=== PATIENT | male | born 1965 | race Two or more races ===

== ENCOUNTER 2019-12-10 07:21 | Emergency (ER) | payer SELFPAY ==
[2019-12-10] MEDS ORDERED: DIAZEPAM 5 MG TABLET PO ONE (09:24)
[2019-12-10] MEDS ORDERED: KETOROLAC TROMETHAMINE INJ/PF 30 MG/1 ML SDV IV ONE (09:24)
--- NOTE | 2019-12-10 10:03 | ER Document Report ---
Entered by MARIA TERESA MALLORY SCRIBE 12/10/19 0942 Acting as scribe for:PAUL MCMAHAN DO ED Neck/Back Problem - General Chief Complaint: Back Pain Stated Complaint: BACK PAIN Time Seen by Provider: 12/10/19 08:52 Primary Care Provider: JACKIE OROPEZA MD [Primary Care Provider] - Follow up as needed Mode of Arrival: Medic Information source: Patient Notes: This 54 year old male patient presents to the emergency department today with complaints of low back pain. 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 Patient states that the pain seems to radiate from his low back up to his mid back and neck. Patient denies any urinary incontinence, fevers, or radiation of pain down his legs. TRAVEL OUTSIDE OF THE [place] IN LAST 30 DAYS: No - Related Data Allergies/Adverse Reactions: No Known Allergies Allergy (Verified 12/10/19 07:42) Past Medical History - General Information source: Patient - Social History Smoking Status: Never Smoker Cigarette use (# per day): No Chew tobacco use (# tins/day): No Frequency of alcohol use: None Drug Abuse: None Lives with: Family Family History: Reviewed & Not Pertinent Patient has suicidal ideation: No Patient has homicidal ideation: No Pulmonary Medical History: Reports: Hx Asthma - seasonal Surgical Hx: Negative - Immunizations Hx Diphtheria, Pertussis, Tetanus Vaccination: Yes Review of Systems - Review of Systems Constitutional: No symptoms reported EENT: No symptoms reported Cardiovascular: No symptoms reported Respiratory: No symptoms reported Gastrointestinal: No symptoms reported Genitourinary: No symptoms reported Male Genitourinary: No symptoms reported Musculoskeletal: See HPI, Back pain Skin: No symptoms reported Hematologic/Lymphatic: No symptoms reported Neurological/Psychological: No symptoms reported -: Yes All other systems reviewed and negative Physical Exam - Vital signs Vitals: Temp Pulse Resp BP Pulse Ox 97.7 F 63 14 108/69 99 12/10/19 07:25 12/10/19 07:25 12/10/19 07:25 12/10/19 07:25 12/10/19 07:25 - Notes Notes: Physical Exam: General: Alert, appears uncomfortable. HEENT: Normocephalic. Atraumatic. PERRL. Extraocular movements intact. Orophary nx clear. Neck: Supple. Non-tender. Respiratory: No respiratory distress. Clear and equal breath sounds bilaterally. Cardiovascular: Regular rate and rhythm. Abdominal: Normal Inspection. Non-tender. No distension. Normal Bowel Sounds. Back: No gross abnormalities. Extremities: Moves all four extremities. Upper extremities: Normal inspection. Normal ROM. Lower extremities: Normal inspection. No edema. Normal ROM. Neurological: Normal cognition. AAOx4. Normal speech. Psychological: Normal affect. Normal Mood. Skin: Warm. Dry. Normal color. 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 No fever or IVDA or midline pain on exam. Better after treatment but pain still present. Discussed outpt treatment and he expressed understanding. Thankfully a nonsmoker. Expect improvement slowly as discussed and warning signs/ reasons to return here discussed. - Vital Signs Vital signs: Temp Pulse Resp BP Pulse Ox 98.1 F 81 14 122/76 99 12/10/19 11:01 12/10/19 11:01 12/10/19 11:01 12/10/19 11:01 12/10/19 11:01 Discharge - Discharge Clinical Impression: Lumbar paraspinal muscle spasm Backache Qualifiers: Back pain location: low back pain Back pain laterality: bilateral Sciatica presence: without sciatica Condition: Good Disposition: HOME, SELF-CARE Instructions: Ice Packs ([facility]), Low Back Pain ([facility]), Muscle Strain ([facility]), Oral Narcotic Medication ([facility]), Pain Medication Injection ([facility]), Warm Packs ([facility]) Additional Instructions: Call your doctor today for follow up this week. Use ice and alternate ice and heat as discussed. Return here for pain not improved with medicine, weakness, fever or other concerns. Take your medicine as directed. Prescriptions: Ibuprofen [Motrin 600 mg Tablet] 600 mg PO TID #30 tablet Diazepam [Valium 5 mg Tablet] 5 mg PO TID #15 tablet Referrals: JACKIE OROPEZA MD [Primary Care Provider] - Follow up as needed I personally performed the services described in the documentation, reviewed and edited the documentation which was dictated to the scribe in my presence, and it accurately records my words and actions.
--- NOTE | 2019-12-10 10:27 | RADIOLOGY REPORT (SQ) ---
EXAM DESCRIPTION: CT LUMBAR SPINE WITHOUT COMPLETED DATE/TIME: 12/10/2019 10:06 am REASON FOR STUDY: back pain COMPARISON: None. TECHNIQUE: Axial images acquired through the lumbar spine without intravenous contrast. Images revi ewed with lung, soft tissue and bone windows. Reconstructed coronal and sagittal MPR images reviewed . All images stored on PACS. All CT scanners at this facility use dose modulation, iterative reconstruction, and/or weight based d osing when appropriate to reduce radiation dose to as low as reasonably achievable (ALARA). [facility]: Dose Right [facility]: CareDose [facility]: Dose Right [facility]: Teradose 4D [facility]: [facility] ICU Care RADIATION DOSE: mGy. LIMITATIONS: None. FINDINGS: Alignment is anatomic. Schmorl's node formation superior endplate L2. No obvious acute d isc herniation. Facet arthropathy lower lumbar spine. There are 2 sclerotic lesions in the right ilium. No paraspinal mass or hematoma. IMPRESSION: Facet arthropathy. No acute findings. Sclerotic lesions right ilium could be bone roz nds, however correlation with bone scan is recommended. TECHNICAL DOCUMENTATION: JOB ID: [id number] Quality ID # [id number]: Final reports with documentation of one or more dose reduction techniques (e.g., Au tomated exposure control, adjustment of the mA and/or kV according to patient size, use of iterative reconstruction technique) 2010 [employer]- All Rights Reserved Reading location - IP/workstation name: [email or web address]
[2019-12-10] MEDS ORDERED: ONDANSETRON HCL INJ/PF 4 MG/2 ML SDV IV ONE (11:01)
[2019-12-10] MEDS ORDERED: MORPHINE SULFATE 10 MG/ML INJ IV ONE (11:01)
[2019-12-10 11:51] VITALS: BP 111/57
== END 2019-12-10 11:35 | disposition home or self-care (01) ==
LOC: ER 07:21
DX: M62.830 Muscle spasm of back (principal); M54.5 Low back pain
CPT/HCPCS: 99284; 96374; 96375; 72131; J1885; J2270; J2405